=== PATIENT | male | born 1985 | race Caucasian/White ===

== ENCOUNTER 2019-05-02 18:35 | Emergency (ER) | payer SELFPAY ==
[~2019-05-02] VITALS: Ht 182.8 cm; Wt 101.6 kg
[2019-05-02] MEDS ORDERED: NAPROSYN500 MG PO (21:08)
== END 2019-05-02 21:34 | disposition home or self-care (01) ==
LOC: ED 18:35
DX: M25.512 Pain in left shoulder (principal); R20.0 Anesthesia of skin; R20.2 Paresthesia of skin; Z88.5 Allergy status to narcotic agent; X50.0XXA Overexertion from strenuous movement or load, initial encounter; Y93.84 Activity, sleeping; Y92.098 Other place in other non-institutional residence as the place of occurrence of the external cause; Y99.8 Other external cause status